=== PATIENT | male | born 1985 | race Caucasian/White ===

== ENCOUNTER → 2022-04-29 | Emergency (ER) | payer BC ==
[~2022-04-29] MED LIST: AMPICILLIN NA/SULBACTAM NA 3 GM in SODIUM CHLORIDE 100 ML IVPB ONE
[2022-04-29 14:11] VITALS: BP 163/99; PULSE 97; RESP 19; TEMP 98.4; BMI 31.9
[2022-04-29 16:18] LABS: BASO % 0.3 % (0-2.0); EOS % 0.8 % (0-4.5); HEMATOCRIT 40.2 % (35.4-49); HEMOGLOBIN 13.5 GM/dL (11.7-16.9); MCHC 33.6 g/dl (32.0-35.9); MEAN CELL VOLUME 95.2 fl (80-96); MEAN PLT VOLUME 7.8 fl (7.5-11.1); NEUT % 66.9 % (42.8-82.8); PLATELET COUNT 127 10^3/uL (134-434); RBC 4.23 M/mm3 (4.00-5.60); RDW 12.8 % (11.9-15.9); WHITE BLOOD COUNT 5.7 K/mm3 (4.0-10.0)
[2022-04-29 16:40] LABS: CALCIUM 8.6 mg/dL (8.5-10.1)
[2022-04-29 16:41] LABS: BLOOD UREA NITROGEN 5.9 mg/dL (7-18)
[2022-04-29 16:44] LABS: CREATININE 0.9 mg/dL (0.55-1.3)
[2022-04-29 16:46] LABS: BILIRUBIN,TOTAL 0.8 mg/dL (0.2-1)
== END | disposition left against medical advice (07) ==
LOC: JERFT 13:59 → JER 13:59
PROC: 3E033GC Introduction of Other Therapeutic Substance into Peripheral Vein, Percutaneous Approach (ICD-10-PCS; principal; 2022-04-29)
DX: S61.451A Open bite of right hand, initial encounter (principal); L03.113 Cellulitis of right upper limb; W54.0XXA Bitten by dog, initial encounter
CPT/HCPCS: 36415; 71046-TC-FY; 73130-TC-RT-FY; 80053; 85025; 99284-25